=== PATIENT | female | born 1995 | race Caucasian/White ===

== ENCOUNTER 2020-06-03 00:15 | Inpatient (IN) | payer OTHER ==
[~2020-06-03] VITALS: Ht 162.6 cm; Wt 62.3 kg
[2020-06-03 00:35] VITALS: BP 109/68
[2020-06-03] MEDS ORDERED: NEWBORN KIT ONE (00:43)
[2020-06-03 00:56] LABS: BASOPHILS % (AUTO) 1 % (0-1); EOSINOPHILS % (AUTO) 1 % (1-7); LYMPHOCYTES % (AUTO) 13 % (22-44); MEAN CORPUSCULAR HEMOGLOBIN 27.7 pg (27.0-34.8); MEAN CORPUSCULAR HGB CONC 33.1 g/dL (32.4-35.8); MEAN PLATELET VOLUME 7.7 fL (7.4-10.4); MONOCYTES % (AUTO) 7 % (2-9); NEUTROPHILS % (AUTO) 78 % (42-75); PLATELET COUNT 376 x10^3/uL (130-400); RED BLOOD COUNT 3.86 x10^6/uL (3.82-5.3); RED CELL DISTRIBUTION WIDTH 14.5 % (9.6-15.2)
[2020-06-03 00:57] LABS: MD NO
[2020-06-03] MEDS ORDERED: LACTATED RINGERS 1,000 ML IV SCH ×2 (01:00→02:30)
[2020-06-03] MEDS ORDERED: FENTANYL PF 100 MCG/2ML IV PRN (01:00)
[2020-06-03] MEDS ORDERED: CALCIUM CARBONATE 500 MG TAB.CHEW PO PRN ×2 (01:00→07:00)
[2020-06-03] MEDS ORDERED: CEFAZOLIN PMX 1GM/50ML 50 ML IVPB SCH (01:00)
[2020-06-03] MEDS ORDERED: TERBUTALINE 1 MG/ML, 1ML IVPush PRN (01:00)
[2020-06-03] MEDS ORDERED: ONDANSETRON 2MG/ML, 2ML IVPush PRN ×2 (01:00→02:30)
[2020-06-03] MEDS ORDERED: OXYTOCIN 30U/ 0.9% NaCL 500ML 500 ML IV ONE (01:00)
[2020-06-03] MEDS ORDERED: D5%-LACTATED RINGERS 1,000 ML IV SCH (01:00)
[2020-06-03] MEDS ORDERED: LACTATED RINGERS 1,000 ML IVBOLUS PRN ×2 (01:00→02:30)
[2020-06-03] MEDS ORDERED: TERBUTALINE 1 MG/ML, 1ML SQ PRN (01:00)
[2020-06-03] MEDS ORDERED: FENTANYL PF 100 MCG/2ML IVPush PRN (01:00)
[2020-06-03] MEDS ORDERED: FENTANYL/BUPIV./NS/PF 250 ML EPIDCONT ONE (01:02)
[2020-06-03] MEDS ORDERED: OXYTOCIN 30U/ 0.9% NaCL 500ML 500 ML ONE ×2 (01:29→06:58)
[2020-06-03 01:32] LABS: MICROSCOPIC INDICATED
[2020-06-03] MEDS ORDERED: BUPIVACAINE 0.25% ONE (01:32)
[2020-06-03 01:37] LABS: AMPHETAMINE SCREEN, URINE Negative (Negative); BARBITURATE SCREEN, URINE Negative (Negative); BENZODIAZEPINE SCREEN, URINE Negative (Negative); CANNABINOID SCREEN, URINE Positive (Negative); COCAINE SCREEN, URINE Negative (Negative); METHADONE SCREEN, URINE Negative (Negative); OPIATE SCREEN, URINE Negative (Negative)
[2020-06-03] MEDS ORDERED: DIPHENHYDRAMINE 50 MG/ML, 1ML IVPush PRN (02:30)
[2020-06-03] MEDS ORDERED: EPHEDRINE 50 MG/ML, 1ML IVPush PRN (02:30)
[2020-06-03] MEDS ORDERED: FENTANYL/BUPIV./NS/PF 250 ML EPIDCONT SCH (02:30)
[2020-06-03] MEDS ORDERED: NALOXONE 0.4 MG/ML, 1ML IVPush PRN (02:30)
[2020-06-03] MEDS ORDERED: ONDANSETRON 2MG/ML, 2ML ONE (04:16)
[2020-06-03] MEDS ORDERED: OXYTOCIN 30U/ 0.9% NaCL 500ML 500 ML IV PRN (05:00)
[2020-06-03] MEDS ORDERED: IBUPROFEN 600 MG TABLET ONE ×2 (06:58→07:04)
[2020-06-03] MEDS ORDERED: METHYLERGONOVINE 0.2 MG/ML IM PRN (07:00)
[2020-06-03] MEDS ORDERED: MAGNESIUM HYDROXIDE 8%, 30ML UDC PO PRN (07:00)
[2020-06-03] MEDS ORDERED: OXYcodone IR 5MG TABLET PO PRN (07:00)
[2020-06-03] MEDS ORDERED: RHOGAM FROM BLOOD BANK 1 NOTE EA IM/IV ONE ×2 (07:00→22:00)
[2020-06-03] MEDS ORDERED: SIMETHICONE 80 MG CHEW TAB PO PRN (07:00)
[2020-06-03] MEDS ORDERED: ONDANSETRON 2MG/ML, 2ML IV PRN (07:00)
[2020-06-03] MEDS ORDERED: OXYTOCIN 10 UNITS/ML, 1ML IM PRN (07:00)
[2020-06-03] MEDS ORDERED: ACETAMINOPHEN 325 MG TABLET PO PRN ×2 (07:00)
[2020-06-03] MEDS ORDERED: DIPH,PERTUSS(ACELL),TET VAC/PF NC IM-VACC PRN (07:00)
[2020-06-03] MEDS: IBUPROFEN 600 MG TABLET PO PRN ×3 (07:01→18:44)
[2020-06-03] MEDS: OXYTOCIN 30U/ 0.9% NaCL 500ML 500 ML IV SCH ×2 (07:02→17:00)
[2020-06-03 09:00] VITALS: BP 93/60
[2020-06-03] MEDS: PRENATAL VIT/IRON/FA 1 EACH TABLET PO SCH (09:04)
[2020-06-03] MEDS: DOCUSATE 100 MG CAPSULE PO PRN ×2 (09:04→22:16)
[2020-06-03 12:45] VITALS: BP 99/68
[2020-06-03] MEDS: OXYcodone/APAP 5/325MG TABLET PO PRN ×2 (13:22→18:45)
[2020-06-03 14:09] LABS: MEAN CORPUSCULAR HEMOGLOBIN 27.5 pg (27.0-34.8); MEAN CORPUSCULAR HGB CONC 32.7 g/dL (32.4-35.8); MEAN PLATELET VOLUME 7.7 fL (7.4-10.4); PLATELET COUNT 330 x10^3/uL (130-400); RED BLOOD COUNT 3.81 x10^6/uL (3.82-5.3); RED CELL DISTRIBUTION WIDTH 14.8 % (9.6-15.2)
[2020-06-03 14:33] LABS: MD YES
[2020-06-03 14:35] LABS: <PLATELET ESTIMATE> ADEQUATE; <PLT MORPHOLOGY> NORMAL PLT MORPH; EOS#(MANUAL) 0.21 x10^3/uL (0.0-0.4); EOS% (MANUAL) 1 % (1-7); LYMPH#(MANUAL) 2.91 x10^3/uL (1-3.4); LYMPHS% (MANUAL) 14 % (22-44); MONOS#(MANUAL) 0.21 x10^3/uL (0.3-2.7); MONOS% (MANUAL) 1 % (2-9); SEG#(MANUAL) 17.47 x10^3/uL (1.8-6.8); SEGS% (MANUAL) 84 % (42-75)
[2020-06-03 14:36] LABS: ANISOCYTOSIS 1+; MICROCYTOSIS 1+
[2020-06-03 16:00] VITALS: BP 117/72
[2020-06-03 20:00] VITALS: BP 111/69
[2020-06-03 23:55] VITALS: BP 106/72
[2020-06-04] MEDS: OXYcodone/APAP 5/325MG TABLET PO PRN ×3 (03:26→12:52)
[2020-06-04] MEDS: IBUPROFEN 600 MG TABLET PO PRN ×2 (03:27→12:52)
[2020-06-04 03:30] VITALS: BP 95/64
[2020-06-04] MEDS ORDERED: FLU VACC QS2020-21(6MOS UP)/PF 60MCG/0.5 ML SYR IM-VACC ONE (06:30)
[2020-06-04 07:17] VITALS: BP 100/61
[2020-06-04] MEDS: PRENATAL VIT/IRON/FA 1 EACH TABLET PO SCH (08:32)
[2020-06-04] MEDS: DOCUSATE 100 MG CAPSULE PO PRN (08:32)
== END 2020-06-04 14:42 | disposition home or self-care (01) | DRG 807 ==
LOC: LDOP 00:15 → LDIP 00:38 → 2NW 08:26
PROVIDERS: ADMIT Obstetrics & Gynecology; ATTEND Obstetrics & Gynecology
PROC: 10E0XZZ Delivery of Products of Conception, External Approach (ICD-10-PCS; principal; 2020-06-03)
PROC: 10907ZC Drainage of Amniotic Fluid, Therapeutic from Products of Conception, Via Natural or Artificial Opening (ICD-10-PCS; 2020-06-03)
PROC: 10H07YZ Insertion of Other Device into Products of Conception, Via Natural or Artificial Opening (ICD-10-PCS; 2020-06-03)
PROC: 3E0R3BZ Introduction of Anesthetic Agent into Spinal Canal, Percutaneous Approach (ICD-10-PCS; 2020-06-03)
PROC: 00HU33Z Insertion of Infusion Device into Spinal Canal, Percutaneous Approach (ICD-10-PCS; 2020-06-03)
PROC: 3E02340 Introduction of Influenza Vaccine into Muscle, Percutaneous Approach (ICD-10-PCS; 2020-06-04)
DX: O80 Encounter for full-term uncomplicated delivery (principal); Z37.0 Single live birth; Z20.822 Contact with and (suspected) exposure to COVID-19; Z3A.37 37 weeks gestation of pregnancy; Z23 Encounter for immunization
CPT/HCPCS: 36415; 80307; 81001; 85025; 85461; 86592; 86850; 86900; 87077; 87086; 87186; 87635; 90686; G0378; J0690; J2405; J2790; J2590; J3010; J7120